=== PATIENT | male | born 1965 | race Two or more races ===

== ENCOUNTER 2019-06-19 13:22 | Emergency (ER) | payer MEDICAID ==
[~2019-06-19] VITALS: Ht 170.2 cm; Wt 73.9 kg
[2019-06-19 13:43] VITALS: Ht 170.2 cm; Wt 73.9 kg
[2019-06-19 15:04] VITALS: BP 132/82
== END 2019-06-19 15:04 | disposition home or self-care (01) ==
LOC: ED 13:22
DX: H10.89 Other conjunctivitis (principal); I10 Essential (primary) hypertension